=== PATIENT | female | born 1960 | race African-American/Black ===

== ENCOUNTER 2017-01-10 14:21 | Emergency (ER) | payer OTHER, MEDICARE ==
[~2017-01-10] VITALS: Ht 167.6 cm; Wt 99.3 kg
[~2017-01-10 14:21] MED LIST: ATEN50TA PO; FERR-57 PO; IBUP-1969 PO; NOR10 PO; OMEP20CA10 PO; TRAZ-123 PO; VENL150C53 PO
[2017-01-10 14:25] VITALS: BP 128/81; PULSE 60; RESP 20; TEMP 97; O2SAT 99
--- NOTE | 2017-01-10 14:30 | NUR ---
Pt placed to ER waiting room in stable condition.
--- NOTE | 2017-01-10 14:30 | NUR ---
Pt c/o generalized weakness and states "I think I'm having a sugar attack." Pt AAOx4, even and non-labored respirations, BBS clear. Skin dry, ambulates without difficulty. Pt states that she was sweating and felt weak while at [employer], so she at some candy. Pt denies hx of DM. Pt also states that she does not have a glucometer to monitor her sugar.
--- NOTE | 2017-01-10 14:34 | NUR ---
Patient to ER bed 1 to gown for evaluation. Side rails up. Report given to Joshua LUU.
--- NOTE | 2017-01-10 14:50 | NUR ---
Dr. Huang at bedside to assess pt.
[2017-01-10 14:57] LABS: BASOPHILS % (AUTO) 0.6 % (0.0-2.0); EOSINOPHILS # (AUTO) 0.1 K/uL (0.0-0.4); HEMATOCRIT 37.4 % (36-48); HEMOGLOBIN 11.8 g/dL (12.0-16.0); LYMPHOCYTES # (AUTO) 1.2 K/uL (1.0-5.5); LYMPHOCYTES % (AUTO) 17.8 % (20.5-51.5); MEAN CORPUSCULAR HEMOGLOBIN 24 pg (27-31); MEAN CORPUSCULAR HGB CONC 32 % (32-36); MEAN CORPUSCULAR VOLUME 76 fL (79.0-98.0); MONOCYTES # (AUTO) 0.5 K/uL (0.0-1.0); MONOCYTES % (AUTO) 8.2 % (1.7-9.3); NEUTROPHILS # (AUTO) 4.8 K/uL (1.8-7.7); NEUTROPHILS % (AUTO) 72.4 % (40.0-70.0); PLATELET COUNT (AUTO) 276 K/uL (130-430); RED BLOOD CELL COUNT(AUTO) 4.91 MIL/uL (4.2-6.2); RED CELL DISTRIBUTION WIDTH 13.5 % (9.0-15.0); WHITE BLOOD COUNT (AUTO) 6.6 K/uL (4.8-10.8)
[2017-01-10 14:58] LABS: BILIRUBIN,URINE NEGATIVE (NEGATIVE); BLOOD, URINE 2+ (NEGATIVE); CLARITY/URINE HAZY (CLEAR); COLOR,URINE YELLOW (YELLOW); GLUCOSE,URINE NEGATIVE (NEGATIVE); KETONES,URINE TRACE (NEGATIVE); LEUKOCYTE ESTERASE ,URINE NEGATIVE (NEGATIVE); NITRITE, URINE NEGATIVE (NEGATIVE); PROTEIN URINE 1+ (NEGATIVE); UROBILINOGEN,URINE 0.2 (0.2-1.0)
[2017-01-10 15:07] LABS: CALCIUM 9.1 mg/dL (8.4-11.0); CREATININE 0.96 mg/dL (0.55-1.30); POTASSIUM 3.6 mmol/L (3.5-5.1)
[2017-01-10 15:11] LABS: BACTERIA,URINE FEW /HPF (None Seen); MUCUS,URINE 1+ /LPF (None Seen); WBC,URINE 0-3 /HPF (0-3)
[2017-01-10 15:12] LABS: ALBUMIN 3.9 g/dL (3.4-4.8); TOTAL BILIRUBIN 0.3 mg/dL (0.0-1.0); TOTAL PROTEIN, SERUM 8.2 g/dL (6.4-8.3)
[2017-01-10] MEDS ORDERED: IBUPROFEN 600 MG TABLET PO ONE (16:30)
--- NOTE | 2017-01-10 16:36 | NUR ---
Patient given written and verbal discharge instructions and verbalizes understanding. ER MD discussed with patient the results and treatment provided. Patient in stable condition. ID arm band removed. No Rx given. Patient educated on pain management and to follow up with PMD tomorrow. Pain Scale 0/10 Opportunity for questions provided and answered.
[2017-01-10 16:38] VITALS: BP 128/81; PULSE 60; RESP 17; TEMP 97; O2SAT 99
== END 2017-01-10 16:38 | disposition home or self-care (01) ==
LOC: SED 14:21
DX: E16.2 Hypoglycemia, unspecified (principal); I10 Essential (primary) hypertension; K21.9 Gastro-esophageal reflux disease without esophagitis
CPT/HCPCS: 36415; 80053; 81000-TC; 85025; 99284

== ENCOUNTER 2017-02-03 14:46 | Emergency (ER) | payer OTHER, MEDICARE ==
[~2017-02-03] VITALS: Ht 167.6 cm; Wt 92.1 kg
[2017-02-03 14:46] VITALS: BP_SYST 133
[2017-02-03] MEDS ORDERED: IPRATROPIUM/ALBUTEROL SULFATE 3 ML AMPUL.NEB INH ONE (16:00)
[2017-02-03] MEDS ORDERED: DEXAMETHASONE SOD PHOSPHATE 10 MG/ML VIAL IM ONE (16:30)
[2017-02-03 16:45] VITALS: BP_SYST 134
== END 2017-02-03 16:45 | disposition home or self-care (01) ==
LOC: SED 14:50
DX: J01.90 Acute sinusitis, unspecified (principal); I10 Essential (primary) hypertension; J45.909 Unspecified asthma, uncomplicated; K21.9 Gastro-esophageal reflux disease without esophagitis
CPT/HCPCS: 94640; 96372; 99283; J1100